=== PATIENT | male | born 1935 | race Caucasian/White ===

== ENCOUNTER 2022-02-03 12:04 | Inpatient (IN) | payer MEDICARE, BC ==
[2022-02-03] MEDS ORDERED: Ondansetron 4 MG Tab.DIS PO PRN (12:14)
[2022-02-03] MEDS ORDERED: Ondansetron 4 MG/2 ML SDV IV PRN (12:14)
[2022-02-03] MEDS ORDERED: Sodium Chloride 0.9% 10 ML Syringe FLUSH PRN (12:14)
[2022-02-03] MEDS ORDERED: Nitroglycerin 0.4 MG Tab.SL SL PRN (13:34)
[2022-02-03] MEDS: Sodium Chloride 0.9% 1,000 ML IV SCH (15:46)
[2022-02-03] MEDS: Sertraline 50 MG Tab PO SCH (21:33)
[2022-02-03] MEDS: Donepezil 10 MG Tab PO SCH (21:34)
[2022-02-04] MEDS: Sodium Chloride 0.9% 1,000 ML IV SCH ×2 (00:39→10:04)
[2022-02-04] MEDS: Omeprazole 20 MG Cap.CR PO SCH ×2 (06:48→17:21)
[2022-02-04 08:21] LABS: ANION GAP 12.9 mmol/L (5-15)
[2022-02-04] MEDS: Aspirin 81 MG Tab.EC PO SCH (08:21)
[2022-02-04] MEDS: Enoxaparin 30 MG/0.3 ML Syringe SUBCUT SCH (08:21)
[2022-02-04] MEDS: buPROPion 150 MG Tab.ER PO SCH (08:21)
[2022-02-04] MEDS: Memantine 10 MG Tab PO SCH ×2 (08:21→21:17)
[2022-02-04] MEDS ORDERED: Loperamide 2 MG Cap PO PRN (09:18)
[2022-02-04] MEDS: Donepezil 10 MG Tab PO SCH (21:17)
[2022-02-04] MEDS: Sertraline 50 MG Tab PO SCH (21:17)
[2022-02-05] MEDS: Omeprazole 20 MG Cap.CR PO SCH ×2 (05:59→17:27)
[2022-02-05 08:25] LABS: ANION GAP 12.6 mmol/L (5-15)
[2022-02-05] MEDS: Memantine 10 MG Tab PO SCH ×2 (08:34→20:23)
[2022-02-05] MEDS: Aspirin 81 MG Tab.EC PO SCH (08:34)
[2022-02-05] MEDS: Enoxaparin 30 MG/0.3 ML Syringe SUBCUT SCH (08:34)
[2022-02-05] MEDS: buPROPion 150 MG Tab.ER PO SCH (08:34)
[2022-02-05] MEDS: Sertraline 50 MG Tab PO SCH (20:27)
[2022-02-05] MEDS: Donepezil 10 MG Tab PO SCH (20:27)
[2022-02-06] MEDS: Omeprazole 20 MG Cap.CR PO SCH (06:00)
[2022-02-06] MEDS ORDERED: Pravastatin 20 MG Tab PO SCH (09:00)
[2022-02-06] MEDS: Memantine 10 MG Tab PO SCH (09:38)
[2022-02-06] MEDS: Enoxaparin 30 MG/0.3 ML Syringe SUBCUT SCH (09:38)
[2022-02-06] MEDS: buPROPion 150 MG Tab.ER PO SCH (09:40)
[2022-02-06] MEDS: Aspirin 81 MG Tab.EC PO SCH (09:40)
== END 2022-02-06 15:46 | disposition swing bed (61) | DRG 392 ==
LOC: VM.MS 12:11
PROVIDERS: ADMIT Internal Medicine; ATTEND Internal Medicine
DX: A08.4 Viral intestinal infection, unspecified (principal); N17.9 Acute kidney failure, unspecified; M62.82 Rhabdomyolysis; F02.81 Dementia in other diseases classified elsewhere, unspecified severity, with behavioral disturbance; E86.0 Dehydration; D69.6 Thrombocytopenia, unspecified; G30.9 Alzheimer's disease, unspecified; F32.A Depression, unspecified; I25.10 Atherosclerotic heart disease of native coronary artery without angina pectoris; Z79.82 Long term (current) use of aspirin; K21.9 Gastro-esophageal reflux disease without esophagitis; Z20.822 Contact with and (suspected) exposure to COVID-19; Z28.311 Partially vaccinated for COVID-19; Z79.1 Long term (current) use of non-steroidal anti-inflammatories (NSAID); Z79.899 Other long term (current) drug therapy; Z90.89 Acquired absence of other organs; Z95.5 Presence of coronary angioplasty implant and graft; E78.5 Hyperlipidemia, unspecified; F32.9 Major depressive disorder, single episode, unspecified; N40.0 Benign prostatic hyperplasia without lower urinary tract symptoms; I12.9 Hypertensive chronic kidney disease with stage 1 through stage 4 chronic kidney disease, or unspecified chronic kidney disease; N18.30 Chronic kidney disease, stage 3 unspecified
CPT/HCPCS: 36415; 51798; 74176; 80048; 80053; 81001; 82550; 83735; 85025; 97112-GP; 97116-GP; 97162-GP; A9270-GY; J1650; J7030; U0002

== ENCOUNTER 2022-02-06 11:58 | Inpatient (IN) | payer MEDICARE, BC ==
[2022-02-06] MEDS ORDERED: Ondansetron 4 MG/2 ML SDV IV PRN (14:47)
[2022-02-06] MEDS ORDERED: Ondansetron 4 MG Tab.DIS PO PRN (14:47)
[2022-02-06] MEDS ORDERED: Sodium Chloride 0.9% 10 ML Syringe FLUSH PRN (14:47)
[2022-02-06] MEDS ORDERED: Loperamide 2 MG Cap PO PRN (14:47)
[2022-02-06] MEDS ORDERED: Nitroglycerin 0.4 MG Tab.SL SL PRN (14:47)
[2022-02-06] MEDS: Omeprazole 20 MG Cap.CR PO SCH (17:50)
[2022-02-06] MEDS: Sertraline 50 MG Tab PO SCH (20:51)
[2022-02-06] MEDS: Donepezil 10 MG Tab PO SCH (20:51)
[2022-02-07] MEDS: Omeprazole 20 MG Cap.CR PO SCH ×2 (06:00→17:51)
[2022-02-07] MEDS: Aspirin 81 MG Tab.EC PO SCH (08:16)
[2022-02-07] MEDS: Pravastatin 20 MG Tab PO SCH (08:16)
[2022-02-07] MEDS: buPROPion 150 MG Tab.ER PO SCH (08:16)
[2022-02-07] MEDS: Memantine 10 MG Tab PO SCH ×2 (09:10→20:13)
[2022-02-07] MEDS: Donepezil 10 MG Tab PO SCH (20:13)
[2022-02-07] MEDS: Sertraline 50 MG Tab PO SCH (20:14)
[2022-02-08] MEDS: Omeprazole 20 MG Cap.CR PO SCH ×2 (06:00→17:29)
[2022-02-08] MEDS: Pravastatin 20 MG Tab PO SCH (09:13)
[2022-02-08] MEDS: Memantine 10 MG Tab PO SCH ×2 (09:13→20:04)
[2022-02-08] MEDS: buPROPion 150 MG Tab.ER PO SCH (09:13)
[2022-02-08] MEDS: Aspirin 81 MG Tab.EC PO SCH (09:13)
[2022-02-08] MEDS: Sertraline 50 MG Tab PO SCH (20:04)
[2022-02-08] MEDS: Donepezil 10 MG Tab PO SCH (20:04)
[2022-02-09] MEDS: Omeprazole 20 MG Cap.CR PO SCH ×2 (06:16→17:54)
[2022-02-09] MEDS: Pravastatin 20 MG Tab PO SCH (08:36)
[2022-02-09] MEDS: Memantine 10 MG Tab PO SCH ×2 (08:36→20:03)
[2022-02-09] MEDS: Aspirin 81 MG Tab.EC PO SCH (08:36)
[2022-02-09] MEDS: buPROPion 150 MG Tab.ER PO SCH (08:36)
[2022-02-09] MEDS: Donepezil 10 MG Tab PO SCH (20:03)
[2022-02-09] MEDS: Sertraline 50 MG Tab PO SCH (20:03)
[2022-02-10] MEDS: Omeprazole 20 MG Cap.CR PO SCH ×2 (06:25→17:41)
[2022-02-10 07:20] LABS: ANION GAP 12.8 mmol/L (5-15)
[2022-02-10] MEDS: Pravastatin 20 MG Tab PO SCH (08:28)
[2022-02-10] MEDS: Memantine 10 MG Tab PO SCH ×2 (08:28→20:25)
[2022-02-10] MEDS: buPROPion 150 MG Tab.ER PO SCH (08:28)
[2022-02-10] MEDS: Aspirin 81 MG Tab.EC PO SCH (08:28)
[2022-02-10] MEDS: Donepezil 10 MG Tab PO SCH (20:26)
[2022-02-10] MEDS: Sertraline 50 MG Tab PO SCH (20:26)
[2022-02-11] MEDS: Omeprazole 20 MG Cap.CR PO SCH ×2 (06:53→17:18)
[2022-02-11] MEDS: Pravastatin 20 MG Tab PO SCH (10:01)
[2022-02-11] MEDS: Memantine 10 MG Tab PO SCH ×2 (10:02→20:50)
[2022-02-11] MEDS: buPROPion 150 MG Tab.ER PO SCH (10:02)
[2022-02-11] MEDS: Aspirin 81 MG Tab.EC PO SCH (10:03)
[2022-02-11] MEDS: Sertraline 50 MG Tab PO SCH (20:50)
[2022-02-11] MEDS: Donepezil 10 MG Tab PO SCH (20:50)
[2022-02-12] MEDS: buPROPion 150 MG Tab.ER PO SCH (08:10)
[2022-02-12] MEDS: Pravastatin 20 MG Tab PO SCH (08:10)
[2022-02-12] MEDS: Memantine 10 MG Tab PO SCH ×2 (08:10→20:27)
[2022-02-12] MEDS: Aspirin 81 MG Tab.EC PO SCH (08:10)
[2022-02-12] MEDS: Omeprazole 20 MG Cap.CR PO SCH ×2 (08:10→17:43)
[2022-02-12] MEDS: Sertraline 50 MG Tab PO SCH (20:27)
[2022-02-12] MEDS: Donepezil 10 MG Tab PO SCH (20:28)
[2022-02-13] MEDS: Omeprazole 20 MG Cap.CR PO SCH ×2 (07:12→17:52)
[2022-02-13] MEDS: Aspirin 81 MG Tab.EC PO SCH (08:33)
[2022-02-13] MEDS: Pravastatin 20 MG Tab PO SCH (08:33)
[2022-02-13] MEDS: buPROPion 150 MG Tab.ER PO SCH (08:33)
[2022-02-13] MEDS: Memantine 10 MG Tab PO SCH ×2 (08:33→22:11)
[2022-02-13] MEDS: Sertraline 50 MG Tab PO SCH (22:12)
[2022-02-13] MEDS: Donepezil 10 MG Tab PO SCH (22:12)
[2022-02-14] MEDS: Omeprazole 20 MG Cap.CR PO SCH (06:28)
[2022-02-14] MEDS: Aspirin 81 MG Tab.EC PO SCH (08:09)
[2022-02-14] MEDS: Pravastatin 20 MG Tab PO SCH (08:09)
[2022-02-14] MEDS: buPROPion 150 MG Tab.ER PO SCH (08:09)
[2022-02-14] MEDS: Memantine 10 MG Tab PO SCH (08:09)
== END 2022-02-14 09:00 | DRG 392 ==
LOC: VM.MS 15:47
PROVIDERS: ADMIT Internal Medicine; ATTEND Internal Medicine
DX: A08.4 Viral intestinal infection, unspecified (principal); N17.9 Acute kidney failure, unspecified; N18.9 Chronic kidney disease, unspecified; D69.6 Thrombocytopenia, unspecified; F32.A Depression, unspecified; I25.10 Atherosclerotic heart disease of native coronary artery without angina pectoris; K21.9 Gastro-esophageal reflux disease without esophagitis; E86.0 Dehydration; G30.9 Alzheimer's disease, unspecified; F02.80 Dementia in other diseases classified elsewhere, unspecified severity, without behavioral disturbance, psychotic disturbance, mood disturbance, and anxiety; Z20.822 Contact with and (suspected) exposure to COVID-19; Z79.82 Long term (current) use of aspirin; Z79.899 Other long term (current) drug therapy; T79.6XXD Traumatic ischemia of muscle, subsequent encounter; W18.30XD Fall on same level, unspecified, subsequent encounter
CPT/HCPCS: 36415; 80048; 85025; 97110-GP; 97116-GP; 97129-GO; 97165-GO; A9270-GY; U0002

== ENCOUNTER 2023-08-19 15:06 | Emergency (ER) | payer MEDICARE, BC ==
[2023-08-19 15:44] LABS: BILIRUBIN,URINE SMALL (NEGATIVE); COLOR,URINE DARK YELLOW (YELLOW); GLUCOSE,URINE NEGATIVE (NEGATIVE); KETONES,URINE TRACE mg/dL (NEGATIVE); LEUKOCYTE ESTERASE,URINE NEGATIVE (NEGATIVE); NITRITE,URINE NEGATIVE (NEGATIVE); OCCULT BLOOD,URINE MODERATE (NEGATIVE); PH,URINE 5.5 (5.0-8.0); PROTEIN,URINE 30 mg/dL (NEGATIVE); UROBILINOGEN,URINE 0.2 EU/dL (0.2)
[2023-08-19 15:52] LABS: APPEARANCE,URINE SLIGHTLY CLOUDY (CLEAR); BACTERIA,URINE OCCASIONAL /HPF (NOT SEEN); MUCUS,URINE FEW /LPF (NOT SEEN); WBC,URINE 0-5 /HPF (NOT SEEN)
[2023-08-19] MEDS ORDERED: Ketorolac 30 MG/ML SDV IM ONE ×2 (15:57→16:09)
[2023-08-19] MEDS ORDERED: Ketorolac 30 MG/ML SDV IVPUSH ONE (16:03)
[2023-08-19] MEDS ORDERED: Take Home: traMADol 50 MG, 4 Tab Pack PO ONE (16:56)
== END 2023-08-19 17:15 | disposition home or self-care (01) ==
LOC: VM.ED 15:06
DX: N13.2 Hydronephrosis with renal and ureteral calculous obstruction (principal); I10 Essential (primary) hypertension; Z88.6 Allergy status to analgesic agent; Z79.899 Other long term (current) drug therapy
CPT/HCPCS: 74176; 81001; 96372; 99284; A9270-GY; J1885

== ENCOUNTER 2024-05-25 23:52 | Emergency (ER) | payer MEDICARE, BC ==
[2024-05-26] MEDS ORDERED: Sodium Chloride 0.9% 10 ML Syringe FLUSH PRN (00:08)
[2024-05-26 00:33] LABS: BASOPHILS PERCENT AUTO 0.3 % (0.2-1.2); EOSINOPHILS ABSOLUTE AUTO 0.1 x10^3/uL (0.0-0.5); EOSINOPHILS PERCENT AUTO 0.7 % (0.0-4.0); HEMATOCRIT 39.7 % (40.0-52.0); HEMOGLOBIN 13.4 g/dL (14.0-18.0); IMMATURE GRAN ABSOLUTE AUTO 0.04 x10^3/uL (0.00-0.07); LYMPHOCYTES ABSOLUTE AUTO 1.4 x10^3/uL (1.0-4.8); LYMPHOCYTES PERCENT AUTO 15.4 % (25.0-50.0); MEAN CORPUSCULAR HEMOGLOBIN 31.3 pg (26.0-32.0); MEAN CORPUSCULAR HGB CONC 33.8 g/dL (32.0-36.0); MEAN CORPUSCULAR VOLUME 92.8 fL (78.0-93.0); MONOCYTES PERCENT AUTO 10.7 % (2.0-11.0); NEUTROPHILS ABSOLUTE AUTO 6.7 x10^3/uL (1.8-7.7); NEUTROPHILS PERCENT AUTO 72.5 % (50.0-80.0); PLATELET COUNT,PLT 141 x10^3/uL (130-400); RED BLOOD CELL COUNT 4.28 x10^6/uL (4.5-6.0); WHITE BLOOD CELL COUNT,WBC 9.2 x10^3/uL (4.0-10.0)
[2024-05-26] MEDS: Lactated Ringers 1,000 ML IV ONE (00:34)
[2024-05-26 00:49] LABS: A/G RATIO 0.97; ALANINE AMINOTRANSFERASE,ALT 14 U/L (16-63); ALBUMIN 3.4 g/dL (3.4-5.0); ALKALINE PHOSPHATASE 81 U/L (46-116); ASPARTATE AMNIOTRANSFERASE,AST 16 U/L (15-37); BILIRUBIN TOTAL 0.6 mg/dL (0.2-1.0); BLOOD UREA NITROGEN,BUN 29 mg/dL (7-18); C-REACTIVE PROTEIN 2.32 mg/dL (<=0.50); CALCIUM 8.8 mg/dL (8.5-10.1); CARBON DIOXIDE,CO2 26 mmol/L (21-32); CHLORIDE,CL 105 mmol/L (98-107); CREATININE 1.7 mg/dL (0.70-1.30); GLUCOSE RANDOM 115 mg/dL (70-99); MAGNESIUM 1.9 mg/dL (1.8-2.4); POTASSIUM,K 4.2 mmol/L (3.5-5.1); PROTEIN TOTAL,TP 6.9 g/dL (6.4-8.2); SODIUM,NA 145 mmol/L (136-145)
[2024-05-26 00:51] LABS: ANION GAP 18.2 mmol/L (5-15); ESTIMATED GFR 38 mL/min (>=60); LACTIC ACID 1.8 mmol/L (0.4-2.0)
[2024-05-26 01:42] LABS: BILIRUBIN,URINE NEGATIVE (NEGATIVE); COLOR,URINE YELLOW (YELLOW); GLUCOSE,URINE NEGATIVE (NEGATIVE); KETONES,URINE NEGATIVE (NEGATIVE); LEUKOCYTE ESTERASE,URINE NEGATIVE (NEGATIVE); NITRITE,URINE NEGATIVE (NEGATIVE); OCCULT BLOOD,URINE LARGE (NEGATIVE); PH,URINE 5.5 (5.0-8.0); PROTEIN,URINE TRACE mg/dL (NEGATIVE); UROBILINOGEN,URINE 0.2 EU/dL (0.2)
[2024-05-26 01:46] LABS: APPEARANCE,URINE SLIGHTLY CLOUDY (CLEAR)
[2024-05-26 01:51] LABS: BACTERIA,URINE RARE /HPF (NOT SEEN); MUCUS,URINE OCCASIONAL /LPF (NOT SEEN); RBC,URINE 40-50 /HPF (NOT SEEN); SQUAMOUS EPITHELIAL CELLS,UR NOT SEEN /HPF (NOT SEEN); WBC,URINE 0-5 /HPF (NOT SEEN)
== END 2024-05-26 02:18 ==
LOC: VM.ED 23:52
DX: S09.90XA Unspecified injury of head, initial encounter (principal); N20.0 Calculus of kidney; R53.1 Weakness; I12.9 Hypertensive chronic kidney disease with stage 1 through stage 4 chronic kidney disease, or unspecified chronic kidney disease; N18.30 Chronic kidney disease, stage 3 unspecified; K21.9 Gastro-esophageal reflux disease without esophagitis; Z95.5 Presence of coronary angioplasty implant and graft; Z88.6 Allergy status to analgesic agent; Z79.82 Long term (current) use of aspirin; Z79.899 Other long term (current) drug therapy; W01.10XA Fall on same level from slipping, tripping and stumbling with subsequent striking against unspecified object, initial encounter; Y92.129 Unspecified place in nursing home as the place of occurrence of the external cause
CPT/HCPCS: 70450; 71045; 80053; 81001; 83605; 83735; 85025; 86140; 87428-QW; 96360; 99284; 99285-25; J7120

== ENCOUNTER 2024-12-03 14:55 | Emergency (ER) | payer MEDICARE, BC | END 2024-12-03 15:53 | LOC: VM.ED 14:55 | DX: M54.50 Low back pain, unspecified (principal); I10 Essential (primary) hypertension; Z79.899 Other long term (current) drug therapy; Z88.8 Allergy status to other drugs, medicaments and biological substances | CPT/HCPCS: 72100; 99283 ==

== ENCOUNTER 2024-12-18 14:28 | Emergency (ER) | payer MEDICARE, BC ==
[2024-12-18] MEDS ORDERED: Sodium Chloride 0.9% 10 ML Syringe FLUSH PRN (14:53)
[2024-12-18 15:33] LABS: BASOPHILS PERCENT AUTO 0.2 % (0.2-1.2); EOSINOPHILS ABSOLUTE AUTO 0.2 x10^3/uL (0.0-0.5); EOSINOPHILS PERCENT AUTO 2.1 % (0.0-4.0); HEMATOCRIT 43.9 % (40.0-52.0); HEMOGLOBIN 14.3 g/dL (14.0-18.0); IMMATURE GRAN ABSOLUTE AUTO 0.04 x10^3/uL (0.00-0.07); LYMPHOCYTES ABSOLUTE AUTO 1.9 x10^3/uL (1.0-4.8); MEAN CORPUSCULAR HEMOGLOBIN 31.2 pg (26.0-32.0); MEAN CORPUSCULAR HGB CONC 32.6 g/dL (32.0-36.0); MEAN CORPUSCULAR VOLUME 95.6 fL (78.0-93.0); MONOCYTES ABSOLUTE AUTO 0.8 x10^3/uL (0.0-0.8); MONOCYTES PERCENT AUTO 7.8 % (2.0-11.0); NEUTROPHILS ABSOLUTE AUTO 7.6 x10^3/uL (1.8-7.7); NEUTROPHILS PERCENT AUTO 71.5 % (50.0-80.0); PLATELET COUNT,PLT 244 x10^3/uL (130-400); RED BLOOD CELL COUNT 4.59 x10^6/uL (4.5-6.0); WHITE BLOOD CELL COUNT,WBC 10.6 x10^3/uL (4.0-10.0)
[2024-12-18] MEDS: Sodium Chloride 0.9% 500 ML IV ONE (15:35)
[2024-12-18 15:57] LABS: A/G RATIO 1.09; ALBUMIN 3.8 g/dL (3.4-5.0); ANION GAP 13.9 mmol/L (5-15); BILIRUBIN TOTAL 0.4 mg/dL (0.2-1.0); CALCIUM 9.1 mg/dL (8.5-10.1); CREATININE 1.5 mg/dL (0.70-1.30); EST CRCL DRUG DOSING (CG) 31.21 mL/min; POTASSIUM,K 3.9 mmol/L (3.5-5.1); PROTEIN TOTAL,TP 7.3 g/dL (6.4-8.2)
== END 2024-12-18 16:23 ==
LOC: VM.ED 14:28 → SUPCPDRO 14:28 → VM.ED 16:23
DX: M54.50 Low back pain, unspecified (principal); I10 Essential (primary) hypertension; Z88.8 Allergy status to other drugs, medicaments and biological substances; Z79.82 Long term (current) use of aspirin; Z79.899 Other long term (current) drug therapy
CPT/HCPCS: 72131; 80053; 85025; 96360; 99285; J7030; 99284

== ENCOUNTER 2025-02-21 13:05 | Inpatient (IN) | payer MEDICARE, BC ==
[2025-02-21 13:21] LABS: BASOPHILS ABSOLUTE AUTO 0.0 x10^3/uL (0.0-0.2); BASOPHILS PERCENT AUTO 0.2 % (0.2-1.2); EOSINOPHILS ABSOLUTE AUTO 0.0 x10^3/uL (0.0-0.5); EOSINOPHILS PERCENT AUTO 0.0 % (0.0-4.0); IMMATURE GRAN ABSOLUTE AUTO 0.06 x10^3/uL (0.00-0.07); IMMATURE GRAN PERCENT AUTO 0.40 % (0.00-0.43); LYMPHOCYTES ABSOLUTE AUTO 0.7 x10^3/uL (1.0-4.8); LYMPHOCYTES PERCENT AUTO 4.7 % (25.0-50.0); MONOCYTES ABSOLUTE AUTO 1.0 x10^3/uL (0.0-0.8); MONOCYTES PERCENT AUTO 6.8 % (2.0-11.0); NEUTROPHILS ABSOLUTE AUTO 13.5 x10^3/uL (1.8-7.7); NEUTROPHILS PERCENT AUTO 87.9 % (50.0-80.0); PLATELET COUNT,PLT 208 x10^3/uL (130-400); RED BLOOD CELL COUNT 4.69 x10^6/uL (4.5-6.0); WHITE BLOOD CELL COUNT,WBC 15.4 x10^3/uL (4.0-10.0)
[2025-02-21 13:42] LABS: A/G RATIO 1.11; ALANINE AMINOTRANSFERASE,ALT 19.0 U/L (16-63); ASPARTATE AMNIOTRANSFERASE,AST 75.0 U/L (15-37); BILIRUBIN TOTAL 0.6 mg/dL (0.2-1.0); BLOOD UREA NITROGEN,BUN 39.0 mg/dL (7-18); CARBON DIOXIDE,CO2 22.0 mmol/L (21-32); CHLORIDE,CL 102.0 mmol/L (98-107); CREATININE 2.3 mg/dL (0.70-1.30); EST CRCL DRUG DOSING (CG) 18.94 mL/min; ESTIMATED GFR 26.0 mL/min (>=60); GLUCOSE RANDOM 166.0 mg/dL (70-99); POTASSIUM,K 4.3 mmol/L (3.5-5.1); PROTEIN TOTAL,TP 7.8 g/dL (6.4-8.2); SODIUM,NA 142.0 mmol/L (136-145)
[2025-02-21] MEDS: Lactated Ringers 1,000 ML IV ONE (13:47)
[2025-02-21 14:22] LABS: APPEARANCE,URINE CLEAR (CLEAR); GLUCOSE,URINE 100 mg/dL (NEGATIVE); OCCULT BLOOD,URINE MODERATE (NEGATIVE)
[2025-02-21 14:46] LABS: SQUAMOUS EPITHELIAL CELLS,UR RARE /HPF (NOT SEEN)
[2025-02-21] MEDS: Sodium Chloride 0.9% 10 ML Syringe FLUSH PRN (16:45)
[2025-02-21] MEDS: Sennosides/Docusate Sodium 50-8.6 MG Tab PO SCH (20:53)
[2025-02-22 07:25] LABS: BLOOD UREA NITROGEN,BUN 35.0 mg/dL (7-18); CARBON DIOXIDE,CO2 22.0 mmol/L (21-32); CHLORIDE,CL 104.0 mmol/L (98-107); CREATININE 2.1 mg/dL (0.70-1.30); EST CRCL DRUG DOSING (CG) 21.52 mL/min; GLUCOSE RANDOM 156.0 mg/dL (70-99); POTASSIUM,K 3.9 mmol/L (3.5-5.1); SODIUM,NA 142.0 mmol/L (136-145)
[2025-02-22 07:27] LABS: ESTIMATED GFR 30.0 mL/min (>=60)
[2025-02-22] MEDS: Ondansetron 4 MG/2 ML SDV IV PRN (08:18)
[2025-02-22] MEDS: buPROPion 150 MG Tab.ER PO SCH (08:23)
[2025-02-22] MEDS ORDERED: MEMANTINE HCL 28 MG PO SCH (09:00)
[2025-02-22 11:03] LABS: BASOPHILS ABSOLUTE AUTO 0.0 x10^3/uL (0.0-0.2); BASOPHILS PERCENT AUTO 0.2 % (0.2-1.2); EOSINOPHILS ABSOLUTE AUTO 0.0 x10^3/uL (0.0-0.5); EOSINOPHILS PERCENT AUTO 0.0 % (0.0-4.0); IMMATURE GRAN ABSOLUTE AUTO 0.04 x10^3/uL (0.00-0.07); IMMATURE GRAN PERCENT AUTO 0.30 % (0.00-0.43); LYMPHOCYTES ABSOLUTE AUTO 0.6 x10^3/uL (1.0-4.8); LYMPHOCYTES PERCENT AUTO 4.6 % (25.0-50.0); MONOCYTES ABSOLUTE AUTO 1.1 x10^3/uL (0.0-0.8); MONOCYTES PERCENT AUTO 8.2 % (2.0-11.0); NEUTROPHILS ABSOLUTE AUTO 11.5 x10^3/uL (1.8-7.7); NEUTROPHILS PERCENT AUTO 86.7 % (50.0-80.0); PLATELET COUNT,PLT 153 x10^3/uL (130-400); RED BLOOD CELL COUNT 4.11 x10^6/uL (4.5-6.0); WHITE BLOOD CELL COUNT,WBC 13.2 x10^3/uL (4.0-10.0)
[2025-02-22] MEDS: Magnesium Hydroxide 400 MG/5 ML Susp 30 ML Cup PO PRN (17:30)
[2025-02-22] MEDS: Acetaminophen/HYDROcodone 325-5 MG Tab PO PRN (20:41)
[2025-02-23 06:44] LABS: BASOPHILS ABSOLUTE AUTO 0.0 x10^3/uL (0.0-0.2); BASOPHILS PERCENT AUTO 0.1 % (0.2-1.2); EOSINOPHILS ABSOLUTE AUTO 0.0 x10^3/uL (0.0-0.5); EOSINOPHILS PERCENT AUTO 0.0 % (0.0-4.0); IMMATURE GRAN ABSOLUTE AUTO 0.04 x10^3/uL (0.00-0.07); IMMATURE GRAN PERCENT AUTO 0.30 % (0.00-0.43); LYMPHOCYTES ABSOLUTE AUTO 0.6 x10^3/uL (1.0-4.8); LYMPHOCYTES PERCENT AUTO 5.1 % (25.0-50.0); MONOCYTES ABSOLUTE AUTO 1.2 x10^3/uL (0.0-0.8); MONOCYTES PERCENT AUTO 10.2 % (2.0-11.0); NEUTROPHILS ABSOLUTE AUTO 10.2 x10^3/uL (1.8-7.7); NEUTROPHILS PERCENT AUTO 84.3 % (50.0-80.0); PLATELET COUNT,PLT 134 x10^3/uL (130-400); RED BLOOD CELL COUNT 4.21 x10^6/uL (4.5-6.0); WHITE BLOOD CELL COUNT,WBC 12.1 x10^3/uL (4.0-10.0)
[2025-02-23 06:59] LABS: BLOOD UREA NITROGEN,BUN 33.0 mg/dL (7-18); CARBON DIOXIDE,CO2 24.0 mmol/L (21-32); CHLORIDE,CL 106.0 mmol/L (98-107); CREATININE 1.8 mg/dL (0.70-1.30); EST CRCL DRUG DOSING (CG) 25.11 mL/min; GLUCOSE RANDOM 153.0 mg/dL (70-99); POTASSIUM,K 3.9 mmol/L (3.5-5.1); SODIUM,NA 140.0 mmol/L (136-145)
[2025-02-23 07:00] LABS: ESTIMATED GFR 36.0 mL/min (>=60)
[2025-02-24 06:45] LABS: PLATELET COUNT,PLT 122.0 x10^3/uL (130-400); RED BLOOD CELL COUNT 3.99 x10^6/uL (4.5-6.0); WHITE BLOOD CELL COUNT,WBC 10.4 x10^3/uL (4.0-10.0)
[2025-02-24 07:26] LABS: A/G RATIO 0.69; ALANINE AMINOTRANSFERASE,ALT 26.0 U/L (16-63); ASPARTATE AMNIOTRANSFERASE,AST 31.0 U/L (15-37); BILIRUBIN TOTAL 0.6 mg/dL (0.2-1.0); BLOOD UREA NITROGEN,BUN 28.0 mg/dL (7-18); CARBON DIOXIDE,CO2 24.0 mmol/L (21-32); CHLORIDE,CL 106.0 mmol/L (98-107); CREATININE 1.8 mg/dL (0.70-1.30); EST CRCL DRUG DOSING (CG) 25.11 mL/min; GLUCOSE RANDOM 141.0 mg/dL (70-99); POTASSIUM,K 4.0 mmol/L (3.5-5.1); PROTEIN TOTAL,TP 6.1 g/dL (6.4-8.2); SODIUM,NA 140.0 mmol/L (136-145)
[2025-02-24 07:28] LABS: ESTIMATED GFR 36.0 mL/min (>=60)
== END 2025-02-24 10:45 | DRG 683 ==
LOC: VM.ED 13:05 → VM.MS 14:56 → INTOOBSV 14:56 → OBSVTOIN 02-22 11:12 → VM.MS 02-23 18:38
PROVIDERS: ADMIT Internal Medicine; ATTEND Internal Medicine
DX: N17.9 Acute kidney failure, unspecified (principal); F02.B18 Dementia in other diseases classified elsewhere, moderate, with other behavioral disturbance; F02.B3 Dementia in other diseases classified elsewhere, moderate, with mood disturbance; F05 Delirium due to known physiological condition; N13.2 Hydronephrosis with renal and ureteral calculous obstruction; Z66 Do not resuscitate; E86.0 Dehydration; G30.1 Alzheimer's disease with late onset; R62.7 Adult failure to thrive; I12.9 Hypertensive chronic kidney disease with stage 1 through stage 4 chronic kidney disease, or unspecified chronic kidney disease; N18.9 Chronic kidney disease, unspecified; E78.00 Pure hypercholesterolemia, unspecified; K21.9 Gastro-esophageal reflux disease without esophagitis; N40.0 Benign prostatic hyperplasia without lower urinary tract symptoms; K59.00 Constipation, unspecified; I25.10 Atherosclerotic heart disease of native coronary artery without angina pectoris; Z79.82 Long term (current) use of aspirin; Z79.899 Other long term (current) drug therapy; Z88.8 Allergy status to other drugs, medicaments and biological substances; Z95.5 Presence of coronary angioplasty implant and graft; S22.080G Wedge compression fracture of T11-T12 vertebra, subsequent encounter for fracture with delayed healing; W18.30XD Fall on same level, unspecified, subsequent encounter; Z68.25 Body mass index [BMI] 25.0-25.9, adult
CPT/HCPCS: 36415; 51701; 51702; 74018; 74176; 80048; 80053; 81001; 85025; 85027; 87070; 96360; 96361; 96374; 99223-GT; 99284; 99285-25; A4315; A9270-GY; G0378; J1630; J2405; J7030; J7120